=== PATIENT | male | born 1970 | race Caucasian/White ===

== ENCOUNTER 2019-06-26 07:53 | Emergency (ER) | payer OTHER ==
[~2019-06-26] VITALS: Ht 188 cm; Wt 115.7 kg
[2019-06-26 07:57] VITALS: BP 135/95
[2019-06-26] MEDS ORDERED: METFORMIN HCL500 M3 PO (08:05)
[2019-06-26] MEDS ORDERED: NORCO 5-325 TA1 EAC1 PO (08:46)
[2019-06-26] MEDS ORDERED: MOBIC15 MG PO (08:46)
== END 2019-06-26 19:30 | disposition home or self-care (01) ==
LOC: ER 07:53
DX: M25.512 Pain in left shoulder (principal); J45.909 Unspecified asthma, uncomplicated; K21.9 Gastro-esophageal reflux disease without esophagitis; Z90.49 Acquired absence of other specified parts of digestive tract; Z88.0 Allergy status to penicillin